=== PATIENT | female | born 1975 | race Two or more races ===

== ENCOUNTER 2017-01-27 19:21 | Emergency (ER) | payer OTHER ==
--- NOTE | ~2017-01-27 | CR281 ---
[facility] A Service of [facility] RADIOLOGY TEXT RESULTS PATIENT: RASHID OCAMPO LOCATION: CFTX : 79 UNIT #: [id number] AGE: [address]: MARCUS HAYWARD APRN SEX: F ORDER DR: [id number] [facility] [address] [place], [place] [address] [id number] MR#: [id number] Acc #: [id number] NAME: RASHID OCAMPO. : 06/18/1974 SEX: F STUDY DATE/TIME: 01/27/2017 19:56 UNIT: [facility] ROOM: STUDY DESCRIPTION: CR Wrist Min 3 View Lt Attending Physician: Marcus Hayward Aprn Ordering Physician: Marcus Hayward Aprn Primary Care Physician: No Primary Care Physician MEDICAL IMAGING REPORT This report is preliminary unless electronic signature is present EXAM Left wrist, 3 views, 01/27/2017. HISTORY Left wrist pain beginning 01/26/2017. No known injury. FINDINGS Wrist evaluation in multiple projections shows normal mineralization of the bony structures about the wrist and satisfactory articular relationship of the radius and ulna to the proximal carpal row and of the distal carpal segments to the metacarpal bases. There is no indication of fracture or dislocation, and no soft tissue radiopaque foreign body is present. No congenital defects are apparent. IMPRESSION Normal wrist. Dictated by... Russ Fitzpatrick M.D. THIS IS AN ELECTRONICALLY VERIFIED REPORT Russ Fitzpatrick M.D. at 01/28/2017 2:16 PM KRT/andi TD: 01/28/2017 10:16 JOB #: [id number] MEDICAL IMAGING REPORT Page 1 of 1 COPY
[~2017-01-27 19:21] MED LIST: ANTI-DIARRHEAL2 M1; BENTYL10 MG DOB; PEPCID AC20 M2 PO; PHENERGAN25 MG PO; TAGAMET300 MG PO; ZANTAC PO
== END 2017-01-27 21:20 | disposition home or self-care (01) ==
LOC: CFTX 19:21 → CED 19:21 → EDBD 21:09 → CFTX 21:09
DX: S63.502A Unspecified sprain of left wrist, initial encounter (principal); E11.9 Type 2 diabetes mellitus without complications; Z79.84 Long term (current) use of oral hypoglycemic drugs; X58.XXXA Exposure to other specified factors, initial encounter; Y92.009 Unspecified place in unspecified non-institutional (private) residence as the place of occurrence of the external cause
CPT/HCPCS: 29125; 73110; 99283

== ENCOUNTER 2017-02-07 19:22 | Emergency (ER) | payer OTHER ==
[~2017-02-07] VITALS: Ht 167.6 cm; Wt 76.2 kg
[2017-02-07 20:42] LABS: URINE SOURCE CLEAN CATCH
[2017-02-07 20:48] LABS: URINE APPEARANCE CLEAR; URINE BILIRUBIN NEG (NEG); URINE BLOOD NEG (NEG); URINE COLOR YELLOW; URINE GLUCOSE >1000 MG/DL (NEG); URINE KETONE NEG (NEG); URINE LEUKOCYTE ESTERASE NEG (NEG); URINE NITRATE NEG (NEG); URINE PH 6.5 (5-8); URINE PROTEIN NEG (NEG); URINE SPECIFIC GRAVITY 1.025 (1.003-1.035); URINE UROBILINOGEN 0.2 MG/DL (NEG)
[2017-02-07 20:53] LABS: BASOPHIL% 0.5 % (0-2.5); EOSINOPHIL# 0.1 X10e3 (0-0.7); EOSINOPHIL% 1.7 % (0.0-7.0); HEMOGLOBIN 12.8 gm/dL (12.0-16.0); LYMPHOCYTE# 1.6 X10e3 (1.0-3.5); LYMPHOCYTE% 34.3 % (17.0-45.0); MEAN CELL VOLUME 85.7 FL (83-96); MEAN CORPUSCULAR HEMOGLOBIN 28.9 PG (28-34); MEAN CORPUSCULAR HGB CONC 33.7 g/dL (30-36); MEAN PLATELET VOLUME 8.7 FL (6.5-11.5); MONOCYTE# 0.3 X10e3 (0-1.0); NEUTROPHIL# 2.6 X10e3 (1.5-7.1); NEUTROPHIL% 56.5 % (40-75); PLATELET COUNT 245 X10e3 (140-420); RED BLOOD COUNT 4.44 X10e (3.90-5.30); RED CELL DISTRIBUTION WIDTH 14.2 % (11.0-15.5); WHITE BLOOD COUNT 4.5 X10e3 (4.0-10.5)
[2017-02-07 20:53] LABS: CULTURE INDICATED? NO
[2017-02-07 20:54] LABS: DIFF IND NO
[2017-02-07 21:17] LABS: BETA HYDROXYBUTYRATE 0.17 MMOL/L (0.02-0.27); CALCIUM SERUM 8.9 mg/dL (8.4-10.2); CREATININE SERUM 0.5 mg/dL (0.6-1.4); GLOM FILT RATE Estimated 121.1 mL/min (>60); POTASSIUM 3.9 mmol/L (3.5-5.1)
[2017-02-07] MEDS ORDERED: GLUCOPHAGE500 MG PO (21:34)
== END 2017-02-07 22:11 | disposition home or self-care (01) ==
LOC: CED 19:22
PROVIDERS: Emergency Medicine
DX: E11.65 Type 2 diabetes mellitus with hyperglycemia (principal); Z79.84 Long term (current) use of oral hypoglycemic drugs
CPT/HCPCS: 36415; 80048; 81003; 82010; 82947; 84703; 85025; 96360; 99284